=== PATIENT | female | born 1985 | race Caucasian/White ===

== ENCOUNTER 2021-07-13 14:09 | Emergency (ER) | payer OTHER ==
[~2021-07-13] VITALS: Ht 154.9 cm; Wt 59.1 kg
[2021-07-13 14:15] VITALS: BP 122/79
[2021-07-13] MEDS ORDERED: FLUC150T61 PO (17:08)
== END 2021-07-13 17:43 | disposition home or self-care (01) ==
LOC: EMS 14:18
DX: N76.4 Abscess of vulva (principal); B37.3 Candidiasis of vulva and vagina; N76.0 Acute vaginitis
CPT/HCPCS: 81002; 99282; 99283

== ENCOUNTER 2021-09-28 10:56 | Emergency (ER) | payer OTHER ==
[~2021-09-28] VITALS: Ht 154.9 cm; Wt 56.8 kg
[~2021-09-28 10:56] MED LIST: FLUC150T61 PO
[2021-09-28] MEDS ORDERED: BENZ-70 PO (14:30)
[2021-09-28] MEDS ORDERED: BENZONATATE 100 MG CAPSULE PO ONE (14:30)
[2021-09-28] MEDS ORDERED: ALBUTEROL SULFATE HFA 90 MCG/PUFF 8 GM INHALER IH ONE (14:30)
[2021-09-28 14:38] VITALS: BP 132/54
[2021-09-28 15:10] LABS: COVID AG,FIA SOURCE NASOPHARYNGEAL
[2021-09-28 15:32] LABS: INFLUENZA TYPE A NEGATIVE FOR TYPE A (NEGATIVE); INFLUENZA TYPE B NEGATIVE FOR TYPE B (NEGATIVE)
== END 2021-09-28 15:52 | disposition home or self-care (01) ==
LOC: EMS 10:57
DX: B34.9 Viral infection, unspecified (principal); Z20.822 Contact with and (suspected) exposure to COVID-19; Z98.890 Other specified postprocedural states
CPT/HCPCS: 71045; 87804; 94640; 99284; J3535